=== PATIENT | male | born 1930 | race Caucasian/White ===

== ENCOUNTER 2017-02-21 07:28 | Day surgery (SDC) | payer MEDICARE, OTHER ==
[~2017-02-21] VITALS: Ht 180.3 cm; Wt 83.9 kg
--- NOTE | ~2017-02-21 | EGD ---
EGD REPORT [facility] [address] [id number] NAME: ROBERTH AGOSTO : [birth year] STATUS : REG [facility] [place] PAT#: [id number] AGE: 86 ADM/REG DATE : 02/21/17 MR#: [id number] REPORT SERV DATE: 02/21/17 DICTATED BY: LAURITA HOWELL DATE: 02/21/17 REPORT STATUS : Draft TRANSCRIBED BY: [facility] DATE: 02/21/17 Endoscopy Center Patient Name: Roberth Agosto Date of : 1930 Attending MD: LAURITA HOWELL MD Procedure Date No Time: 02/21/2017 Procedure: Colonoscopy Indications: Personal history of malignant neoplasm of the colon Referring MD: NENA ROMANO Medicines: Propofol per Anesthesia Complications: No immediate complications. Procedure: Pre-Anesthesia Assessment: - ASA Grade Assessment: IV - A patient with severe systemic disease that is a constant threat to life. After I obtained informed consent, the scope was passed under direct vision. Throughout the procedure, the patient's blood pressure, pulse, and oxygen saturations were monitored continuously. The CF [id number] was introduced through the anus and advanced to the ileocolonic anastomosis. The colonoscopy was performed without difficulty. The patient tolerated the procedure well. The quality of the bowel preparation was good. Findings: The perianal and digital rectal examinations were normal. A sessile polyp was found in the ascending colon. The polyp was 5 mm in size. Biopsies were taken with a cold forceps for histology. This looked like an inflammatory polyp arising at the anatomosis. Multiple biopsies were obtained to rule out dysplasia. Many medium-mouthed diverticula were found in the sigmoid colon and in the descending colon. A sessile polyp was found in the rectum. The polyp was 4 mm in size. Biopsies were taken with a cold forceps for histology. Internal hemorrhoids were found during retroflexion and were Grade I (internal hemorrhoids that do not prolapse). The rest of the colon was normal. Impression: - One 5 mm polyp in the ascending colon. Biopsied. - Diverticulosis in the sigmoid colon and in the descending colon. - One 4 mm polyp in the rectum. Biopsied. - Internal hemorrhoids. Recommendation: - Discharge patient to home. - Patient has a contact number available for EGD REPORT [address] [address] NAME: ROBERTH AGOSTO : [birth year] STATUS : REG [facility]#: [id number] AGE: 86 ADM/REG DATE : 02/21/17 MR#: [id number] REPORT SERV DATE: 02/21/17 DICTATED BY: LAURITA HOWELL DATE: 02/21/17 REPORT STATUS : Draft TRANSCRIBED BY: [employer] [facility] DATE: 02/21/17 emergencies. The signs and symptoms of potential delayed complications were discussed with the patient. Return to normal activities tomorrow. Written discharge instructions were provided to the patient. - Regular diet. - Patient has a contact number available for emergencies. The signs and symptoms of potential delayed complications were discussed with the patient. Return to normal activities tomorrow. Written discharge instructions were provided to the patient. - Continue present medications. - Repeat colonoscopy in 3 years for surveillance. - Return to my office in 3 weeks. Procedure Code(s): --- Professional --- 85694, Colonoscopy, flexible, proximal to splenic flexure; with biopsy, single or multiple Diagnosis Code(s): --- Professional --- K62.1, Rectal polyp D12.2, Benign neoplasm of ascending colon K64.0, First degree hemorrhoids K57.30, Diverticulosis of large intestine without perforation or abscess without bleeding Z85.038, Personal history of other malignant neoplasm of large intestine CPT copyright 2013 [employer]. All rights reserved. The codes documented in this report are preliminary and upon shore working supervisor review may be revised to meet current compliance requirements. Laurita Howell MD LAURITA HOWELL MD 02/21/2017 8:29 AM This report has been signed electronically. Number of Addenda: 0 Note Initiated On: 02/21/2017 8:01 AM Scope Withdrawal Time 0 hours 8 minutes 13 seconds [address] [id number]
[~2017-02-21 07:28] MED LIST: 8 HOUR650 MG PO; ACET500CAP PO; ADOXA PAK1 MG/150 M PO; ALBUTEROL5 INH; ASAB PO; B COMPLETE PO; CARASPUDL PO; CENTRUM TAB1 TAB PO; CHEMOTHERAPY IV; CLARIT10 PO; CORDARONE PO; COUMADIN3 MG PO; COUMADIN4 MG PO; COUMADIN6 MG PO; DSS PO; FESO4 PO; FLOMAX4 PO; GLUCOPHAGE1000 MG PO; GLUCOTRO10 PO; GLUCOTROL5 PO; GLUCPH PO; GLUCXL2.5 PO; HALF81 PO; INTEGRA PLUS C1 EACH PO; JANTOVEN5 MG PO; LEVOTHYROXIN100 MCG PO; LEVOTHYROXIN75 MCG PO; LIPITOR20 PO; LISINOPRIL40 MG PO; LOP50 PO; LOVENOX80 SC; NITROQUICK0.4 MG SL; NITROSTAT0.4 MG SL; NORCO1 TA1 PO; PEPCID AC PO; PLAVIX PO; PRILOSEC OTC20 MG PO; PRIN5 PO; PROTONIX PO; SINGULAIR1 PO; SPIRIVA INH; SUCR PO; SUPER B COMP PO; SYN075 PO; T PO; TESS PO; TOPXL100 PO; TOPXL50 PO; TRICOR48 PO; TYLENOL 8 HR650 MG PO; VITAMIN D1000 UNI1 PO; VITAMIN D31000 UNIT PO; ZESTRIL40 MG PO; ZYRTEC ALLGY10 MG PO; [UNRECOGNIZED DRUG - OTHER] IV
[2017-02-21 07:53] LABS: INTERNATIONAL NORMAL RATI 1.3 UNITS (-)
[2017-02-21 07:54] LABS: PROTIME (NOT ORD) 15.9 SEC (12.0-14.5)
== END 2017-02-21 23:59 | disposition home or self-care (01) ==
LOC: DMU 07:28
PROVIDERS: Anesthesiology; Internal Medicine Gastroenterology
PROC: 0DBP8ZX Excision of Rectum, Via Natural or Artificial Opening Endoscopic, Diagnostic (ICD-10-PCS; 2017-02-21)
PROC: 0DBK8ZX Excision of Ascending Colon, Via Natural or Artificial Opening Endoscopic, Diagnostic (ICD-10-PCS; principal; 2017-02-21 09:00)
DX: Z12.11 Encounter for screening for malignant neoplasm of colon (principal); K62.1 Rectal polyp; K57.30 Diverticulosis of large intestine without perforation or abscess without bleeding; K64.0 First degree hemorrhoids; I10 Essential (primary) hypertension; E11.9 Type 2 diabetes mellitus without complications; I25.10 Atherosclerotic heart disease of native coronary artery without angina pectoris; M19.90 Unspecified osteoarthritis, unspecified site; J44.9 Chronic obstructive pulmonary disease, unspecified; K21.9 Gastro-esophageal reflux disease without esophagitis; N40.0 Benign prostatic hyperplasia without lower urinary tract symptoms; E03.9 Hypothyroidism, unspecified; D64.9 Anemia, unspecified; Z85.038 Personal history of other malignant neoplasm of large intestine; Z87.891 Personal history of nicotine dependence; Z85.118 Personal history of other malignant neoplasm of bronchus and lung; Z79.01 Long term (current) use of anticoagulants; Z95.2 Presence of prosthetic heart valve; Z90.49 Acquired absence of other specified parts of digestive tract; Z88.0 Allergy status to penicillin; Z88.5 Allergy status to narcotic agent; Z79.899 Other long term (current) drug therapy; Z95.5 Presence of coronary angioplasty implant and graft; Z98.41 Cataract extraction status, right eye; Z98.42 Cataract extraction status, left eye; Z96.1 Presence of intraocular lens; Z98.890 Other specified postprocedural states
CPT/HCPCS: 82962; 85610; 88305